=== PATIENT | male | born 1970 | race Caucasian/White ===

== ENCOUNTER 2019-04-18 18:22 | Emergency (ER) | payer OTHER ==
[2019-04-18 18:53] VITALS: BP 139/87
--- NOTE | 2019-04-18 19:01 | UC ---
Throat Pain/Nasal Garret HPI - HPI Summary HPI Summary: Patient is a 48yo male presenting with cold symptoms x2 weeks that he states have moved into his chest causing symptoms of bronchitis. He notes nasal congestion, sinus pressure, and sore throat. Notes productive cough. Notes fever this morning. Notes chills and night sweats. Denies n/v/d. Denies SOB. Notes crackling and tightness feeling in his chest. Denies wheezing. Notes trying home remedies and nyquil with little relief. - History of Current Complaint Chief Complaint: UCRespiratory Stated Complaint: CONGESTION, COUGH, B/L EAR COMPLAINT Hx Obtained From: Patient Onset/Duration: Gradual Onset, Lasting Weeks Pain Intensity: 3 Pain Scale Used: 0-10 Numeric - Allergies/Home Medications Allergies/Adverse Reactions: Allergies Allergy/AdvReac Type Severity Reaction Status Date / Time none Allergy See Comment Uncoded 04/18/19 18:39 Home Medications: Home Medications Cetirizine* [ZyrTEC 10 MG TAB*] 10 mg PO DAILY 04/18/19 [History Confirmed 04/18] Chlorpheniramine/Dextromethorp [Cough-Cold Tablet] 1 each PO Q12HR 04/18/19 [ History Confirmed 04/18/19] Multivit with Iron,Minerals [Super Multiple] 1 each PO DAILY 04/18/19 [History Confirmed 04/18/19] Omeprazole CAP(NF) [PriLOSEC CAP(NF)] 10 mg PO DAILY 04/18/19 [History Confirmed 04/18/19] Rosuvastatin Calcium 1 mg PO BEDTIME 04/18/19 [History Confirmed 04/18/19] PMH/Surg Hx/FS Hx/Imm Hx Previously Healthy: Yes - Surgical History Surgical History: Yes Surgery Procedure, Year, and Place: hernia repain - Family History Known Family History: Positive: Non-Contributory - Social History Alcohol Use: None Substance Use Type: None Smoking Status (MU): Never Smoked Tobacco Review of Systems All Other Systems Reviewed And Are Negative: Yes Constitutional: Positive: Fever, Chills, Fatigue Skin: Positive: Negative Eyes: Positive: Negative ENT: Positive: Ear Ache, Nasal Discharge, Sinus Congestion. Negative: Sore Throat, Sinus Pain/Tenderness Respiratory: Positive: Cough, Other - notes chest tightness and crackling. Negative: Shortness Of Breath Cardiovascular: Positive: Negative. Negative: Palpitations, Chest Pain Gastrointestinal: Positive: Negative. Negative: Abdominal Pain, Vomiting, Diarrhea, Nausea Neurological: Positive: Negative. Negative: Headache Physical Exam Triage Information Reviewed: Yes Appearance: Well-Appearing, No Pain Distress, Well-Nourished Vital Signs: Initial Vital Signs Temp 99.1 F 04/18/19 18:45 Pulse 122 04/18/19 18:45 Resp 20 04/18/19 18:45 BP 139/87 04/18/19 18:45 Pulse Ox 96 04/18/19 18:45 Vital Signs Reviewed: Yes Eyes: Positive: Conjunctiva Clear ENT: Positive: Hearing grossly normal, Pharyngeal erythema, Nasal congestion, TMs normal, Uvula midline. Negative: Nasal drainage, TM bulging, TM dull, TM red, Tonsillar swelling, Tonsillar exudate, Sinus tenderness Neck exam: Normal Neck: Positive: Supple, Nontender, No Lymphadenopathy Respiratory: Positive: Chest non-tender, No respiratory distress, No accessory muscle use, Crackles - faint crackles heard in RLL. Negative: Rhonchi, Stridor , Wheezing Cardiovascular Exam: Normal Cardiovascular: Positive: RRR. Negative: Tachycardia Neurological: Positive: Alert Psychological: Positive: Age Appropriate Behavior Diagnostics - Radiology chest xray Radiology Interpretation Completed By: ED Physician Summary of Radiographic Findings: no acute process Throat Pain/Nasal Course/Dx - Course Course Of Treatment: Discussed with the patient that the final xray report will be obtained tomorrow. Patient has an URI with an acute bronchitis. Based on history and PE findings, patient is being treated for possible bacterial infection with cefdinir. Patient instructed to continue symptomatic treatment and return if symptoms worsen. Discussed patient with Dr. Muller who agreed to the treatment plan. Patient voiced understanding and agreed to treatment plan. - Differential Dx/Diagnosis Provider Diagnosis: Upper respiratory infection, Acute bronchitis Discharge ED - Sign-Out/Discharge Documenting (check all that apply): Patient Departure All imaging exams completed and their final reports reviewed: No - Discharge Plan Condition: Stable Disposition: HOME Prescriptions: Cefdinir cap* [Cefdinir 300 MG cap (NF)] 300 mg PO BID #14 cap Patient Education Materials: Acute Bronchitis (ED) Referrals: Jovon Figueroa MD [Primary Care Provider] - If Needed Additional Instructions: As discussed, the final read of your xray will be obtained tomorrow and you will be notified with any abnormalities. Take the antibiotic as prescribed for treatment of possible bacterial infection. You may continue to take over the counter cough medications and mucinex for your cold symptoms. You may use nasal saline spray as directed for symptomatic relief. You may take ibuprofen as directed for pain relief. Get plenty of rest and fluids. Return or follow up with your primary care doctor if your symptoms worsen or do not resolve within 7 days. - Billing Disposition and Condition Condition: STABLE Disposition: Home - Attestation Statements Provider Attestation: I was available for consult. This patient was seen by the [facility]. The patient was not presented to, seen by, or examined by me. -Spenser
--- NOTE | 2019-04-19 08:26 | ED ---
Progress - Progress Note Progress Note: Final read reviewed. NAD Course/Dx - Diagnoses Provider Diagnoses: Upper respiratory infection, Acute bronchitis Discharge ED - Sign-Out/Discharge Documenting (check all that apply): Patient Departure All imaging exams completed and their final reports reviewed: Yes - Discharge Plan Condition: Stable Disposition: HOME Prescriptions: Cefdinir cap* [Cefdinir 300 MG cap (NF)] 300 mg PO BID #14 cap Patient Education Materials: Acute Bronchitis (ED) Referrals: Jovon Figueroa MD [Primary Care Provider] - If Needed Additional Instructions: As discussed, the final read of your xray will be obtained tomorrow and you will be notified with any abnormalities. Take the antibiotic as prescribed for treatment of possible bacterial infection. You may continue to take over the counter cough medications and mucinex for your cold symptoms. You may use nasal saline spray as directed for symptomatic relief. You may take ibuprofen as directed for pain relief. Get plenty of rest and fluids. Return or follow up with your primary care doctor if your symptoms worsen or do not resolve within 7 days. - Billing Disposition and Condition Condition: STABLE Disposition: Home
== END 2019-04-18 19:52 | disposition home or self-care (01) ==
LOC: UCCORT 18:22
DX: J06.9 Acute upper respiratory infection, unspecified (principal); J20.9 Acute bronchitis, unspecified
CPT/HCPCS: 71046; 99201; G0463